=== PATIENT | male | born 1980 | race Caucasian/White ===

== ENCOUNTER 2017-12-17 23:49 | Emergency (ER) | payer OTHER ==
[~2017-12-17] VITALS: Ht 182.9 cm; Wt 93.2 kg
[~2017-12-17 23:49] MED LIST: IBUP-1051 PO
[2017-12-18] MEDS ORDERED: TETanus/Pertussis (Acell)/Diphther VAC/PF (Tdap-Adult) 0.5ml syringe IM ONE (00:10)
[2017-12-18 01:01] VITALS: BP 144/93
== END 2017-12-18 01:03 | disposition home or self-care (01) ==
LOC: ER 23:49
DX: S01.01XA Laceration without foreign body of scalp, initial encounter (principal); F10.129 Alcohol abuse with intoxication, unspecified; F17.200 Nicotine dependence, unspecified, uncomplicated; Z79.899 Other long term (current) drug therapy; W51.XXXA Accidental striking against or bumped into by another person, initial encounter; Y93.89 Activity, other specified; Y92.89 Other specified places as the place of occurrence of the external cause; Y99.8 Other external cause status; Y90.9 Presence of alcohol in blood, level not specified
CPT/HCPCS: 12002; 90471; 90715; 99283

== ENCOUNTER 2023-07-03 12:40 | Emergency (ER) | payer BC, OTHER ==
[~2023-07-03] VITALS: Ht 182.9 cm; Wt 108.6 kg
[2023-07-03 13:00] VITALS: BP 125/93
[2023-07-03 14:24] LABS: BASOPHILS # (AUTO) 0.1 X10'3 (0-0.2); BASOPHILS % (AUTO) 0.4 % (0-1); EOSINOPHILS # (AUTO) 0.2 X10'3 (0-0.9); EOSINOPHILS % (AUTO) 1.3 % (0-6); HEMATOCRIT 45.1 % (42.0-52.0); HEMOGLOBIN 14.9 g/dl (14.0-17.9); LYMPHOCYTES % (AUTO) 14.3 % (21-51); MEAN CORPUSCULAR HEMOGLOBIN 27.8 PG (27.0-31.0); MEAN CORPUSCULAR HGB CONC 33.2 g/dL (33.0-36.5); MEAN CORPUSCULAR VOLUME 83.9 FL (78-98); MEAN PLATELET VOLUME 9.1 FL (7.4-10.4); MONOCYTES # (AUTO) 0.9 X10'3 (0-0.9); MONOCYTES % (AUTO) 6.2 % (2-12); NEUTROPHILS # (AUTO) 10.9 X10'3 (1.8-7.7); NEUTROPHILS % (AUTO) 77.8 % (42-75); PLATELET COUNT 231 X10'3 (140-440); RED BLOOD COUNT 5.37 X10'6 (4.70-6.10); RED CELL DISTRIBUTION WIDTH 13.4 % (11.5-14.5)
[2023-07-03 14:40] LABS: ALANINE AMINOTRANSFERASE 85 U/L (12-78); ALBUMIN 4.2 G/DL (3.4-5.0); ALBUMIN/GLOBULIN RATIO 1.1 (1.1-1.5); ALKALINE PHOSPHATASE 77 IU/L (46-116); ANION GAP 6 (8-16); ASPARTATE AMINO TRANSFERASE 35 U/L (10-37); BILIRUBIN,TOTAL 0.4 MG/DL (0.1-1.0); BLOOD UREA NITROGEN 8 MG/DL (7-18); BUN/CREATININE RATIO 7.3 (10.0-20.0); CALCIUM 9.3 MG/DL (8.5-10.1); CHLORIDE 101 MMOL/L (99-107); CREATININE 1.09 MG/DL (0.60-1.10); GLUCOSE 103 MG/DL (70-104); SODIUM 137 MMOL/L (135-145); TOTAL CARBON DIOXIDE 29.7 MMOL/L (24-32); TOTAL PROTEIN 8.2 G/DL (6.4-8.2); eCRCL 99 ML/MIN; eGFR 75 ML/MIN
[2023-07-03] MEDS ORDERED: iohexol 300mg/ml 100ml inj. ONE (20:55)
[2023-07-03] MEDS ORDERED: ketorolac trometh. 30mg/ml inj. IV ONE (21:25)
[2023-07-03] MEDS ORDERED: ondansetron/PF 4mg/2ml inj IV ONE (21:25)
[2023-07-03] MEDS ORDERED: morphine 4 MG/ML inj SYRINge IV ONE (21:25)
[2023-07-03 21:45] VITALS: PULSE 70; RESP 18; TEMP 98.3; O2SAT 99
[2023-07-03] MEDS ORDERED: piperacillin/tazo 3.375gm/50ml 50 ML IV ONE (22:00)
[2023-07-03] MEDS ORDERED: AMOX-580 PO (22:26)
[2023-07-03] MEDS ORDERED: OXYC-145 PO (22:26)
--- NOTE | 2023-07-03 22:45 | NUR ---
[facility] in [facility] - 07/03/23 at 2245 by BARRY pt treated and evaluia
--- NOTE | 2023-07-03 22:45 | NUR ---
pt treated and evaluated by provider prior to nursing assessment
== END 2023-07-03 22:50 | disposition home or self-care (01) ==
LOC: ER 12:41
DX: L03.211 Cellulitis of face (principal); Z79.899 Other long term (current) drug therapy
CPT/HCPCS: 36415; 70487; 80053; 85025; 96365; 96375; 99285; J1885; J2270; J2405; J2543; J3490; Q9967